=== PATIENT | male | born 1975 | race Caucasian/White ===

== ENCOUNTER 2016-10-29 07:07 | Emergency (ER) | payer OTHER ==
[2016-10-29 08:07] LABS: HEMOGLOBIN 15.8 gm/dl (14.0-17.5); RED BLOOD COUNT 5.26 M/UL (4.20-5.50); WHITE BLOOD COUNT 6.7 K/UL (4.5-11.0)
[2016-10-29 08:14] LABS: BUN/CREATININE RATIO 9 (0-10)
== END 2016-10-29 11:30 | disposition home or self-care (01) ==
LOC: ER1 07:07 → EDSEX 07:07 → ER1 11:30
PROVIDERS: Physician Assistant
DX: N13.2 Hydronephrosis with renal and ureteral calculous obstruction (principal); F17.210 Nicotine dependence, cigarettes, uncomplicated
CPT/HCPCS: 36415; 80053; 81001; 83690; 85025; 96374; 96375; 99284; J1885; J2270; J2405

== ENCOUNTER 2016-10-30 15:05 | Emergency (ER) | payer OTHER ==
[2016-10-30 16:04] LABS: HEMOGLOBIN 15.4 gm/dl (14.0-17.5); RED BLOOD COUNT 5.27 M/UL (4.20-5.50)
[2016-10-30 16:08] LABS: WHITE BLOOD COUNT 10.7 K/UL (4.5-11.0)
[2016-10-30 16:19] LABS: BUN/CREATININE RATIO 11 (0-10)
== END 2016-10-30 17:25 | disposition home or self-care (01) ==
LOC: ER1 15:05
PROVIDERS: Emergency Medicine
DX: N20.0 Calculus of kidney (principal)
CPT/HCPCS: 36415; 74000; 80053; 81001; 83690; 85025; 96374; 96375; 96376; 99284; J1885; J2405